=== PATIENT | male | born 1985 | race African-American/Black ===

== ENCOUNTER 2019-01-10 20:47 | Emergency (ER) | payer BC, SELFPAY ==
--- NOTE | 2019-01-10 21:24 | EDPHYS ---
Physician Documentation [facility] Name: Kwan Covington Age: 33 yrs Sex: Male : 1985 Arrival Date: 01/10/2019 Time: 20:50 Bed 6 Private MD: ED Physician Brijesh Vargas HPI: 01/10 21:13 This 33 yrs old Black Male presents to ER via Ambulatory with complaints of Abscess. wa 21:13 The patient presents with an abscess of the right hip. Description: The affected area wa is small, localized, erythematous, raised, swollen. Onset: The symptoms/episode began/occurred 5 day(s) ago. Possible cause(s): unknown. Associated signs and symptoms: The patient has no apparent associated signs or symptoms. Modifying factors: the symptoms are alleviated by nothing, the symptoms are aggravated by nothing. Severity of symptoms: At their worst the symptoms were moderate, in the emergency department the symptoms are unchanged. The patient has experienced a previous episode. The patient has not recently seen a physician. Historical: - Allergies: 21:00 PENICILLINS; ao - Home Meds: 21:00 Methylphenidate Oral [Active]; ao - PMHx: 21:00 narcolepsy; ao - PSHx: 21:00 None; ao - Immunization history:: Adult Immunizations up to date. - Social history:: Smoking status: Patient uses tobacco products, denies chronic smoking, but will smoke occasionally, Patient/guardian denies using alcohol, but has a distant history of alcohol abuse, street drugs, but used to use street drugs. - Ebola Screening: : No symptoms or risks identified at this time Patient negative for fever greater than or equal to 101.5 degrees Fahrenheit, and additional compatible Ebola Virus Disease symptoms Patient denies exposure to infectious person Patient denies travel to an Ebola-affected area in the 21 days before illness onset. - Family history:: not pertinent. - Hospitalizations: : No recent hospitalization is reported. ROS: 21:21 Constitutional: Negative for fever, chills, and weight loss, Eyes: Negative for injury, wa pain, redness, and discharge, ENT: Negative for injury, pain, and discharge, Neck: Negative for injury, pain, and swelling, Cardiovascular: Negative for chest pain, palpitations, and edema, Respiratory: Negative for shortness of breath, cough, wheezing, and pleuritic chest pain, Abdomen/GI: Negative for abdominal pain, nausea, vomiting, diarrhea, and constipation, Back: Negative for injury and pain, : Negative for injury, bleeding, discharge, and swelling, MS/Extremity: Negative for injury and deformity, Neuro: Negative for headache, weakness, numbness, tingling, and seizure, Psych: Negative for depression, anxiety, suicide ideation, homicidal ideation, and hallucinations. 21:21 Skin: Positive for abscess, of the right hip. 21:21 All other systems are negative. wa Exam: 21:21 Constitutional: This is a well developed, well nourished patient who is awake, alert, wa and in no acute distress. Head/Face: Normocephalic, atraumatic. Eyes: Pupils equal round and reactive to light, extra-ocular motions intact. Lids and lashes normal. Conjunctiva and sclera are non-icteric and not injected. Cornea within normal limits. Periorbital areas with no swelling, redness, or edema. ENT: Nares patent. No nasal discharge, no septal abnormalities noted. Tympanic membranes are normal and external auditory canals are clear. Oropharynx with no redness, swelling, or masses, exudates, or evidence of obstruction, uvula midline. Mucous membranes moist. Neck: Trachea midline, no thyromegaly or masses palpated, and no cervical lymphadenopathy. Supple, full range of motion without nuchal rigidity, or vertebral point tenderness. No Meningismus. Chest/axilla: Normal chest wall appearance and motion. Nontender with no deformity. No lesions are appreciated. Cardiovascular: Regular rate and rhythm with a normal S1 and S2. No gallops, murmurs, or rubs. Normal PMI, no JVD. No pulse deficits. Respiratory: Lungs have equal breath sounds bilaterally, clear to auscultation and percussion. No rales, rhonchi or wheezes noted. No increased work of breathing, no retractions or nasal flaring. Abdomen/GI: Soft, non-tender, with normal bowel sounds. No distension or tympany. No guarding or rebound. No evidence of tenderness throughout. Back: No spinal tenderness. No costovertebral tenderness. Full range of motion. MS/ Extremity: Pulses equal, no cyanosis. Neurovascular intact. Full, normal range of motion. Neuro: Awake and alert, GCS 15, oriented to person, place, time, and situation. Cranial nerves II-XII grossly intact. Motor strength 5/5 in all extremities. Sensory grossly intact. Cerebellar exam normal. Normal gait. Psych: Awake, alert, with orientation to person, place and time. Behavior, mood, and affect are within normal limits. 21:21 Skin: abscess, that is small, with pointing. Vital Signs: 20:58 BP 129 / 87; Pulse 85; Resp 18; Temp 97.9; Pulse Ox 98% ; Weight 112.04 kg; Height 5 ea ft. 10 in. (177.80 cm); 21:30 BP 136 / 87; Pulse 80; Resp 18; Pulse Ox 97% on R/A; ea 20:58 Body Mass Index 35.44 (112.04 kg, 177.80 cm) ea Procedures: 21:22 I \T\ D: Incision and drainage was performed for an abscess of the right right hip wa Prepped with Betadine, Anesthetized with 1 ml's 1% Lidocaine. Incised with #11 blade. Drained small amount purulent fluid. Dressing: sterile 4x4 gauze, the patient tolerated the procedure well. MDM: 20:55 Patient medically screened. wa 21:22 Differential diagnosis: abscess. Data reviewed: vital signs, nurses notes. Response to mt treatment: the patient's symptoms have markedly improved after treatment. Administered Medications: No medications were administered Disposition: 01/10/19 21:23 Discharged to Home. Impression: Right Hip Abscess. - Condition is Stable. - Discharge Instructions: Skin Abscess, [id number]. - Prescriptions for Doxycycline Hyclate 100 mg Oral Tablet - take 1 tablet by ORAL route every 12 hours; 20 tablet. - Medication Reconciliation Form, Thank You Letter, Antibiotic Education, Prescription Opioid Use form. - Follow up: Private Physician; When: 2 - 3 days. - Problem is new. - Symptoms have improved. - Notes: take antiobiotic as prescribed Signatures: Anderson Bailey RN RN ao Antunez, Elena, RN RN ea Appiah, William, MD MD wa Corrections: (The following items were deleted from the chart) 21:31 21:23 01/10/2019 21:23 Discharged to Home. Impression: Right Hip Abscess. Condition is ea Stable. Forms are Medication Reconciliation Form, Thank You Letter, Antibiotic Education, Prescription Opioid Use. Follow up: Private Physician; When: 2 - 3 days. Problem is new. Symptoms have improved. wa
--- NOTE | 2019-01-10 21:24 | ER ---
Nurse's Notes [facility] Name: Kwan Covington Age: 33 yrs Sex: Male : 1985 Arrival Date: 01/10/2019 Time: 20:50 Bed 6 Private MD: Diagnosis: Right Hip Abscess Presentation: 01/10 20:56 Presenting complaint: Patient states: Abscess int he right hip for a month. Girlfriend ao try to remove it but was unsuccessful. Transition of care: patient was not received from another setting of care. Onset of symptoms is unknown. Risk Assessment: Do you want to hurt yourself or someone else? Patient reports no desire to harm self or others. Initial Sepsis Screen: Does the patient meet any 2 criteria? No. Patient's initial sepsis screen is negative. Does the patient have a suspected source of infection? No. Patient's initial sepsis screen is negative. Care prior to arrival: None. 20:56 Method Of Arrival: Ambulatory ao 20:56 Acuity: PITER 4 ao 20:57 Presenting complaint: Patient states: Abscess to right hip x 1 month, popped it with no lp1 relief. 20:58 Risk Assessment: Do you want to hurt yourself or someone else? Patient reports no lp1 desire to harm self or others. 20:58 Acuity: PITER 4 lp1 Historical: - Allergies: 21:00 PENICILLINS; ao - Home Meds: 21:00 Methylphenidate Oral [Active]; ao - PMHx: 21:00 narcolepsy; ao - PSHx: 21:00 None; ao - Immunization history:: Adult Immunizations up to date. - Social history:: Smoking status: Patient uses tobacco products, denies chronic smoking, but will smoke occasionally, Patient/guardian denies using alcohol, but has a distant history of alcohol abuse, street drugs, but used to use street drugs. - Ebola Screening: : No symptoms or risks identified at this time Patient negative for fever greater than or equal to 101.5 degrees Fahrenheit, and additional compatible Ebola Virus Disease symptoms Patient denies exposure to infectious person Patient denies travel to an Ebola-affected area in the 21 days before illness onset. - Family history:: not pertinent. - Hospitalizations: : No recent hospitalization is reported. Screenin:59 Abuse screen: Denies threats or abuse. Nutritional screening: No deficits noted. ea Tuberculosis screening: No symptoms or risk factors identified. Fall Risk None identified. Assessment: 21:00 General: Appears in no apparent distress. Behavior is calm, cooperative, appropriate ea for age. Pain: Complains of pain in right hip. Neuro: Level of Consciousness is awake, alert, obeys commands, Oriented to person, place, time, situation. Respiratory: Airway is patent Respiratory effort is even, unlabored, Respiratory pattern is regular, symmetrical. Derm: Skin is pink, warm \T\ dry. Abscess located on right hip is dime sized, is raised. 21:28 Reassessment: Patient and/or family updated on plan of care and expected duration. Pain ea level reassessed. Patient is alert, oriented x 3, equal unlabored respirations, skin warm/dry/pink. Discharge instruction given to patient, verbalized the understanding of instruction. Pt left ED ambulatory tolerating well Patient states feeling better. Vital Signs: 20:58 BP 129 / 87; Pulse 85; Resp 18; Temp 97.9; Pulse Ox 98% ; Weight 112.04 kg; Height 5 ea ft. 10 in. (177.80 cm); 21:30 BP 136 / 87; Pulse 80; Resp 18; Pulse Ox 97% on R/A; ea 20:58 Body Mass Index 35.44 (112.04 kg, 177.80 cm) ea ED Course: 20:50 Patient arrived in ED. cf2 20:55 Brijesh Vargas MD is Attending Physician. wa 20:56 Anderson Bailey, RN is Primary Nurse. ao 20:58 Triage completed. lp1 20:59 Patient has correct armband on for positive identification. Bed in low position. Call ea light in reach. Side rails up X 1. 20:59 Arm band placed on right wrist. Patient placed in an exam room, on a stretcher, on ea pulse oximetry. 21:10 Assist provider with I \T\ D: of an abscess on right right hip Set up I\T\D tray. Performed ea by Brijesh Vargas MD Dressing with 4X4s, Patient tolerated well. 21:29 Patient did not have IV access during this emergency room visit. ea Administered Medications: No medications were administered Outcome: 21:23 Discharge ordered by . wa 21:30 Discharged to home ambulatory. ea 21:30 Condition: stable 21:30 Discharge instructions given to patient, Instructed on discharge instructions, follow up and referral plans. medication usage, Demonstrated understanding of instructions, follow-up care, medications, Prescriptions given X 1. 21:31 Patient left the ED. que Signatures: Shanna Clayton RN RN lp1 Anderson Bailey RN Randa Rachel RN RN ea Appiah, William, MD MD wa Frazier, [place] 2
[2019-01-10 22:25] VITALS: TEMP 97.9
[2019-01-10 22:26] VITALS: BP 136/87; O2SAT 97
== END 2019-01-10 21:31 | disposition home or self-care (01) ==
LOC: ER 20:47
PROC: 0J9L0ZZ Drainage of Right Upper Leg Subcutaneous Tissue and Fascia, Open Approach (ICD-10-PCS; principal; 2019-01-10)
DX: L02.415 Cutaneous abscess of right lower limb (principal); G47.419 Narcolepsy without cataplexy; Z72.0 Tobacco use; Z88.0 Allergy status to penicillin
CPT/HCPCS: 99283